=== PATIENT | male | born 1985 | race Caucasian/White ===

== ENCOUNTER 2021-02-15 00:30 | Inpatient (IN) | payer SELFPAY ==
[2021-02-15 00:15] VITALS: BP 142/91; PULSE 103; RESP 14; TEMP 37.2; O2SAT 100
[2021-02-15 00:47] VITALS: BMI 21.6
[2021-02-15 05:20] VITALS: BP 94/59; PULSE 85; RESP 16; TEMP 36.8; O2SAT 97
--- NOTE | 2021-02-15 06:39 | PC.NURSE ---
PATIENT WAS SOMNOLENT AND NONVERBAL UPON ADMISSION WOULD OCCASIONALLY RESPOND WITH A HEAD NOD.
--- NOTE | 2021-02-15 08:53 | PC.OT ---
OT EVALUATION ATTEMPTED; PATIENT DOES NOT AWAKEN; WILL ATTEMPT AGAIN AT A LATER TIME.
--- NOTE | 2021-02-15 11:20 | PM.NHP ---
Providers/Chief Complaint Admitting Physician: Tyrone Lundberg MD Chief Complaint: psychosis HPI NPU History of Present Illness Augusto Batres is a 35 year old male who presented to the outside hospital reports that he was found on 02/09/[address] from [facility] because he believed his father was going to kill him psychiatric consult was obtained. There is an affidavit as a reference reported patient had suffered from depression since high school due to bullying he has social anxiety. Not able to hold a job and has recently lost to family members decoded they endorse worsening anxiety depression where he is fearful of everything and in early November he started believing his father did not like him and would hurt him. Even when the father around patient will be reporting that he can see that his father was mad at him. He was texting his brother telling him that he needed to save his life. His paranoia and delusions have been worsening. He was disorganized at that time upon interview and continues to report being scared of his dad. He was placed on a 90-hour hold and transferred to [facility] for definitive treatment of those issues. Here he has been in next acute essentially doing only head nods occasionally low amplitude vocalizations can be heard but they are usually 1 or 2 words. He is getting up and going to meals at times but he is otherwise quite isolative and unwilling to give any significant history. We were unable to extract any other history. Discussed the risk benefits and alternatives of starting Abilify and he seemed ambivalent about whether he wanted or considered taking it. Drawing from the outside hospital chart they denied previous hospitalizations or outpatient treatment and denied using past psychiatric medications or suicide attempts he denied to them that he had autism later stating that he grew out of it. 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 Drug use of any kind of denied any denied any significant medical history. They denied any positive labs however the actual laboratory studies were not sent in his back. Meds NPU Home Medications Medication Instructions Recorded Confirmed Last Taken Type No Known Home Medications 02/15/21 02/15/21 Unknown History Allergies Allergy/AdvReac Type Severity Reaction Status Date / Time No Known Allergies Allergy Verified 02/16/21 05:27 Mental Status Exam MSE Comments: This is a slender male in hospital scrubs with limited grooming and eye contact with significant redness of the skin likely secondary to sunburn. No abnormal movements except for psychomotor retardation. Uncooperative with exam in no acute distress. Speech was limited and decreased rate and volume. Mood not described affect subdued. Thought process appeared linear. Thought content: Patient denied with head nods suicidal or homicidal ideation, there are no delusions reported and he did seem paranoid, there were no auditory visual hallucinations endorsed he did not appear to be attending to internal stimuli but he is also eyes closed and not interacting. Attention and concentration were limited and memory was unreliable but none were formally tested. He is alert and oriented x3. Insight and judgment are impaired and impulse control is impaired. Vitals/I&O/Wt Last Vital Signs Temp 98.9 F 02/15/21 00:15 Pulse 103 H 02/15/21 00:15 Resp 14 02/15/21 00:15 BP 142/91 02/15/21 00:15 Pulse Ox 100 02/15/21 00:15 A&P Assessment and plan (1) Psychosis: Status: Acute Additional A&P Information This is a 35-year-old white male who presented to the outside hospital with no reported history of mental health but likely a childhood diagnosis of autism who presents with worsening psychosis over the past couple months but thought his father is going to kill him not currently on medication. 1. Continue current medication. We will offer Abilify for his psychosis and hope that he will take it but if he continues in his condition he may need a 21-day hold. 2. Continue every 15 minute checks for safety. 3. Encourage individual, group and milieu therapies. 4. Encourage sober living treatment after discharge at the highest level of care to which he is willing to commit. Attestations NPU Medical Necessity Statement*: Inpatient hospitalization is medically necessary and the clinically appropriate intervention at this time. We will monitor medications and make changes as indicated. Patient will be in the hospital for over two midnights. Likely length of stay 4-6 days. Coding Level of Care Code Acute Physically Impaired Teacher for Greta Garcia Diagnoses Psychosis F29
[2021-02-15 13:55] VITALS: BP 128/82; PULSE 112; RESP 16; TEMP 36.6; O2SAT 98
[2021-02-15 21:14] VITALS: BP 128/82; PULSE 89; RESP 16; TEMP 36.6; O2SAT 98
[2021-02-15 22:00] VITALS: BP 131/87; PULSE 79; RESP 18; TEMP 36.7; O2SAT 98
[2021-02-16 06:00] VITALS: BP 124/78; PULSE 79; RESP 17; TEMP 36.8; O2SAT 99
--- NOTE | 2021-02-16 11:33 | PM.NPN ---
Subjective NPU Subjective: Interval history: Patient presents today primarily unchanged. Continues to be isolative not using significant vocalization to 3 words mostly mumbled under his breath. He did endorse that he did not take the Abilify once again discussed the risk-benefit alternatives to him taking it and he appeared to understand and agreed proceed as documented his note he had reviewed the medication today I identified we would continue to offer it. We continue to discuss our belief that he was suffering from psychosis and that the primary solution to that psychosis would be a medication like Abilify. Mental Status Exam MSE Comments: This is a slender male in hospital scrubs with limited grooming and eye contact with significant redness of the skin likely secondary to sunburn. No abnormal movements except for psychomotor retardation. Uncooperative with exam in no acute distress. Speech was limited and decreased rate and volume. Mood not described affect subdued. Thought process appeared linear. Thought content: Patient denied with head nods suicidal or homicidal ideation, there are no delusions reported and he did seem paranoid, there were no auditory visual hallucinations endorsed he did not appear to be attending to internal stimuli but he is also eyes closed and not interacting. Attention and concentration were limited and memory was unreliable but none were formally tested. He is alert and oriented x3. Insight and judgment are impaired and impulse control is impaired. Vitals/I&O/Wt Last Vital Signs Temp 98.2 F 02/16/21 06:00 Pulse 79 02/16/21 06:00 Resp 17 02/16/21 06:00 BP 124/78 02/16/21 06:00 Pulse Ox 99 02/16/21 06:00 A&P Additional A&P Information (1) Psychosis: This is a 35-year-old white male who presented to the outside hospital with no reported history of mental health but likely a childhood diagnosis of autism who presents with worsening psychosis over the past couple months but thought his father is going to kill him not currently on medication. 1. Continue current medication. We will continue to offer Abilify 10 mg p.o. daily. 2. Continue every 15 minute checks for safety. 3. Encourage individual, group and milieu therapies. 4. Encourage sober living treatment after discharge at the highest level of care to which he is willing to commit. Involuntary Hold Information 96 Hour Hold: 96 Hour Involuntary Admission: Yes 96 Hour Hold Ending Date: 02/21/21 96 Hour Hold Ending Time: 00:15 Attestations NPU Medical Necessity Statement*: Inpatient hospitalization is medically necessary and the clinically appropriate intervention at this time. We will monitor medications and make changes as indicated. Likely length of stay 4-6 days. Coding Level of Care Code Acute Health Safety Coordinator for Greta Garcia
[2021-02-16 14:00] VITALS: BP 124/78; PULSE 79; RESP 17; TEMP 36.8; O2SAT 99
--- NOTE | 2021-02-16 21:56 | PC.NURSE ---
Patient lying in bed with eyes closed when this television news reporter entered. When asked why the patient was here, patient stated he had to get away from his dad. States he just sensed that his dad was going to hurt him. states his dad has not hurt him in the past, but knew it was going to happen. Patient states he started in [place] and was going to [place]. Patient denies hearing voices, but does state he see geometric shapes, that seem to come and go. denies currently seeing them. will continue to monitor.
[2021-02-16 22:00] VITALS: BP 124/75; PULSE 73; RESP 17; TEMP 36.6; O2SAT 98
[2021-02-17 06:00] VITALS: BP 123/75; PULSE 82; RESP 16; TEMP 36.6; O2SAT 99
[2021-02-17] MEDS: ARIPiprazole 10 mg Tablet PO (07:47)
--- NOTE | 2021-02-17 08:45 | PM.NPN ---
Subjective NPU Subjective: Interval history: Patient presents today with slightly increased verbiage and ability to communicate but still with limited transfer of information. Continues to be quite isolative but does come out of his room and asked for something to drink. Quite gaunt appearance and seeming somewhat sickly per staff reports. He did finally take the Abilify this morning. He denies any issues with the medication. Endorsed that he had thoughts that his father was going to harm him prior to admission and that he was not necessarily having those thoughts now. Mental Status Exam MSE Comments: This is a slender underweight male in hospital scrubs with limited grooming and eye contact with significant redness of the skin likely secondary to sunburn. No abnormal movements except for psychomotor retardation. Uncooperative with exam in no acute distress. Speech was limited and decreased rate and volume. Mood described as okay, affect subdued. Thought process appeared linear. Thought content: Patient denied with head nods suicidal or homicidal ideation, there are no delusions reported and he did seem paranoid, there were no auditory visual hallucinations endorsed he did not appear to be attending to internal stimuli. Attention and concentration were limited and memory was unreliable but none were formally tested. He is alert and oriented x3. Insight and judgment are impaired and impulse control is impaired. Vitals/I&O/Wt Last Vital Signs Temp 97.9 F 02/17/21 06:00 Pulse 82 02/17/21 06:00 Resp 16 02/17/21 06:00 BP 123/75 02/17/21 06:00 Pulse Ox 99 02/17/21 06:00 A&P Additional A&P Information (1) Psychosis: This is a 35-year-old white male who presented to the outside hospital with no reported history of mental health but likely a childhood diagnosis of autism who presents with worsening psychosis over the past couple months but thought his father is going to kill him not currently on medication. 1. Continue current medication. Abilify 10 mg p.o. every morning initiated. 2. Continue every 15 minute checks for safety. 3. Encourage individual, group and milieu therapies. 4. Encourage sober living treatment after discharge at the highest level of care to which he is willing to commit. Involuntary Hold Information 96 Hour Hold: 96 Hour Involuntary Admission: Yes 96 Hour Hold Ending Date: 02/21/21 96 Hour Hold Ending Time: 00:15 Attestations NPU Medical Necessity Statement*: Inpatient hospitalization is medically necessary and the clinically appropriate intervention at this time. We will monitor medications and make changes as indicated. Likely length of stay 3-5 days. He is on a 96-hour hold. Coding Level of Care Code Acute Hairspring Fabrication Supervisor for Greta Garcia
[2021-02-17 14:00] VITALS: BP 112/72; PULSE 80; RESP 16; TEMP 36.9; O2SAT 98
[2021-02-17 22:00] VITALS: BP 115/71; PULSE 97; RESP 16; TEMP 36.7; O2SAT 98
[2021-02-18 05:24] VITALS: BMI 21.6
[2021-02-18 06:00] VITALS: BP 115/72; PULSE 109; RESP 17; TEMP 36.9; O2SAT 98
[2021-02-18] MEDS: ARIPiprazole 10 mg Tablet PO (08:58)
--- NOTE | 2021-02-18 11:12 | P.PN_ITS ---
Subjective NPU Subjective: Interval history: Patient presents today continuing to be isolative and into his room. He continues to have limited intake but is eating. He continues to have limited vocalizations in his responses but is now more apt to give a limited verbal response. He can give no explanation of the circumstances regarding his position or even the issues surrounding his thought that his father is trying to kill him. He has been compliant with the medication. Mental Status Exam MSE Comments: This is a slender underweight male in hospital scrubs with limited grooming and eye contact with significant redness of the skin likely secondary to sunburn. No abnormal movements except for psychomotor retardation. Uncooperative with exam in no acute distress. Speech was limited and decreased rate and volume. Mood described as okay, affect subdued. Thought process appeared more organized. Thought content: Patient denied suicidal or homicidal ideation, there are no delusions reported and he did seem paranoid, there were no auditory visual hallucinations endorsed he did not appear to be attending to internal stimuli. Attention and concentration were limited and memory was u nreliable but none were formally tested. He is alert and oriented x3. Insight and judgment are impaired and impulse control is impaired. Vitals/I&O/Wt Last Vital Signs Temp 98.1 F 02/17/21 22:00 Pulse 97 02/17/21 22:00 Resp 16 02/17/21 22:00 BP 115/71 02/17/21 22:00 Pulse Ox 98 02/17/21 22:00 Weight last 48 hrs Weight 70.307 kg A&P Additional A&P Information (1) Psychosis: This is a 35-year-old white male who presented to the outside hospital with no reported history of mental health but likely a childhood diagnosis of autism who presents with worsening psychosis over the past couple months but thought his father is going to kill him not currently on medication. 1. Continue current medication. 2. Continue every 15 minute checks for safety. 3. Encourage individual, group and milieu therapies. 4. Encourage sober living treatment after discharge at the highest level of care to which he is willing to commit. Involuntary Hold Information 96 Hour Hold: 96 Hour Involuntary Admission: Yes 96 Hour Hold Ending Date: 02/21/21 96 Hour Hold Ending Time: 00:15 Attestations NPU Medical Necessity Statement*: Inpatient hospitalization is medically necessary and the clinically appropriate intervention at this time. We will monitor medications and make changes as indicated. Likely length of stay 2-4 days. He is on a 96-hour hold. Coding Level of Care Code Acute Qa Developer for Greta Garcia
[2021-02-18 14:00] VITALS: BP 115/73; PULSE 100; RESP 15; TEMP 36.8; O2SAT 98
[2021-02-18 21:13] VITALS: BP 118/80; PULSE 75; RESP 17; TEMP 37.2; O2SAT 99
[2021-02-19 06:00] VITALS: BP 113/75; PULSE 99; RESP 17; TEMP 36.6; O2SAT 97
[2021-02-19] MEDS: ARIPiprazole 10 mg Tablet PO (08:15)
--- NOTE | 2021-02-19 12:41 | PM.NPN ---
Subjective NPU Subjective: Interval history: Patient presents today continuing to be fairly limited historian and mostly seeming and capable of giving informed conversation about past circumstances and future plans. He continues to seem feeble and spends the majority of his time lying in bed somewhat shaky. We discussed the 21-day hold but will be likely given his continued significant symptomatic state. He seemed fairly ambivalent about the conversation. Mental Status Exam MSE Comments: This is a slender underweight male in hospital scrubs with limited grooming and eye contact with significant redness of the skin likely secondary to sunburn. No abnormal movements except for psychomotor retardation and some tremulousness. Somewhat more engaged with exam in no acute distress. Speech was limited and decreased rate and volume. Mood described as okay, affect subdued. Thought process appeared more organized, but still not completely organized. Thought content: Patient denied suicidal or homicidal ideation, there are no delusions reported and he did seem paranoid, there were no auditory visual hallucinations endorsed he did not appear to be attending to internal stimuli. Attention and concentration were limited and memory was unreliable but none were formally tested. He is alert and oriented x3. Insight and judgment are impaired and impulse control is impaired. Vitals/I&O/Wt Last Vital Signs Temp 97.8 F 02/19/21 06:00 Pulse 99 02/19/21 06:00 Resp 17 02/19/21 06:00 BP 113/75 02/19/21 06:00 Pulse Ox 97 02/19/21 06:00 Weight last 48 hrs Weight 70.307 kg A&P Additional A&P Information (1) Psychosis: This is a 35-year-old white male who presented to the outside hospital with no reported history of mental health but likely a childhood diagnosis of autism who presents with worsening psychosis over the past couple months but thought his father is going to kill him not currently on medication. 1. Continue current medication. 2. Continue every 15 minute checks for safety. 3. Encourage individual, group and milieu therapies. 4. Encourage sober living treatment after discharge at the highest level of care to which he is willing to commit. 5. Attempting to get collateral information from family but son reports a family attempting to get guardianship. Involuntary Hold Information 96 Hour Hold: 96 Hour Involuntary Admission: Yes 96 Hour Hold Ending Date: 02/21/21 96 Hour Hold Ending Time: 00:15 Attestations NPU Medical Necessity Statement*: Inpatient hospitalization is medically necessary and the clinically appropriate intervention at this time. We will monitor medications and make changes as indicated. Likely length of stay 3-5 days. Likely will need a 21-day hold. Coding Level of Care Code Acute Deli Cutter Slicer for Greta Garcia
[2021-02-19 14:00] VITALS: BP 113/67; PULSE 101; RESP 17; TEMP 36.9; O2SAT 97
[2021-02-19 20:48] VITALS: BP 111/72; PULSE 98; RESP 17; TEMP 36.4; O2SAT 98
[2021-02-20 05:59] VITALS: BP 121/75; PULSE 72; RESP 15; TEMP 37.1; O2SAT 99
[2021-02-20] MEDS: ARIPiprazole 10 mg Tablet PO (08:21)
--- NOTE | 2021-02-20 12:34 | NPU.GN ---
[facility] Group Topic:Coping Skills General Mood of Group:Refused group.
[2021-02-20 14:00] VITALS: BP 111/70; PULSE 95; RESP 20; TEMP 36.1; O2SAT 97
--- NOTE | 2021-02-20 19:58 | PM.NPN ---
Subjective NPU Subjective: Interval history: Patient presents today continuing to have limited insight into the condition that led to him being on his 96-hour hold. We discussed the 21-day hold was filed. In our field for need for continued inpatient services for some time but explained that it would not have to be 21 days. We discussed the risks, benefits and alternatives of increasing his Abilify to 50 mg p.o. every morning and he understood and agreed to proceed as documented in this note. Mental Status Exam MSE Comments: This is a slender underweight male in hospital scrubs with limited grooming and eye contact with significant redness of the skin likely secondary to sunburn. No abnormal movements except for psychomotor retardation and some tremulousness. Somewhat more engaged with exam in no acute distress. Speech was limited and decreased rate and volume. Mood described as okay, affect subdued. Thought process appeared more organized, but still not completely organized. Thought content: Patient denied suicidal or homicidal ideation, there are no delusions reported and he did seem paranoid, there were no auditory visual hallucinations endorsed he did not appear to be attending to internal stimuli. Attention and concentration were limited and memory was unreliable but none were formally tested. He is alert and oriented x3. Insight and judgment are impaired and impulse control is impaired. Vitals/I&O/Wt Last Vital Signs Temp 97.8 F 02/20/21 20:08 Pulse 67 02/20/21 20:08 Resp 17 02/20/21 20:08 BP 130/85 02/20/21 20:08 Pulse Ox 97 02/20/21 20:08 A&P Additional A&P Information (1) Psychosis: This is a 35-year-old white male who presented to the outside hospital with no reported history of mental health but likely a childhood diagnosis of autism who presents with worsening psychosis over the past couple months but thought his father is going to kill him not currently on medication. 1. Continue current medication. We will increase Abilify to 15 mg p.o. every morning. 2. Continue every 15 minute checks for safety. 3. Encourage individual, group and milieu therapies. 4. Encourage sober living treatment after discharge at the highest level of care to which he is willing to commit. 5. Attempting to get collateral information from family but son reports a family attempting to get guardianship. 6. 21-day hold paperwork filed. Involuntary Hold Information 96 Hour Hold: 96 Hour Involuntary Admission: Yes 96 Hour Hold Ending Date: 02/21/21 96 Hour Hold Ending Time: 00:15 Attestations NPU Medical Necessity Statement*: Inpatient hospitalization is medically necessary and the clinically appropriate intervention at this time. We will monitor medications and make changes as indicated. Likely length of stay 8-10 days. Coding Level of Care Code Acute Car Sales Representative for Greta Garcia
[2021-02-20 20:08] VITALS: BP 130/85; PULSE 67; RESP 17; TEMP 36.6; O2SAT 97
[2021-02-21 06:00] VITALS: BP 118/78; PULSE 65; RESP 15; TEMP 36.7; O2SAT 98
[2021-02-21] MEDS: ARIPiprazole 10 mg Tablet 15 MG PO (07:58)
[2021-02-21 14:00] VITALS: BP 111/67; PULSE 102; RESP 18; TEMP 36.8; O2SAT 98
--- NOTE | 2021-02-21 17:36 | PM.NPN ---
Subjective NPU Subjective: Interval history: Patient presents today continuing to have limited goal-directed behavior outside of sometimes coming to get something to eat or drink. He is not engaging with other patients or group in general. We discussed that his family was concerned enough that they were talking about guardianship which created no response in him. We talked about the risk benefits alternatives of increasing his Abilify and he understood and agreed to proceed as documented in this note. He had his first increased dose this morning. Mental Status Exam MSE Comments: This is a slender underweight male in hospital scrubs with limited grooming and eye contact with resolving redness of the skin secondary to sunburn. No abnormal movements except for psychomotor retardation and some tremulousness. Somewhat more engaged with exam in no acute distress. Speech was limited and decreased rate and volume. Mood described as okay, affect subdued. Thought process appeared more organized, but still not completely organized. Thought content: Patient denied suicidal or homicidal ideation, there are no delusions reported and he did seem paranoid, there were no auditory visual hallucinations endorsed he did not appear to be attending to internal stimuli. Attention and concentration were limited and memory was unreliable but none were formally tested. He is alert and oriented x3. Insight and judgment are impaired and impulse control is impaired. Vitals/I&O/Wt Last Vital Signs Temp 98.2 F 02/21/21 22:00 Pulse 96 02/21/21 22:00 Resp 17 02/21/21 22:00 BP 106/62 02/21/21 22:00 Pulse Ox 98 02/21/21 22:00 A&P Additional A&P Information (1) Psychosis: This is a 35-year-old white male who presented to the outside hospital with no reported history of mental health but likely a childhood diagnosis of autism who presents with worsening psychosis over the past couple months but thought his father is going to kill him not currently on medication. 1. Continue current medication. 2. Continue every 15 minute checks for safety. 3. Encourage individual, group and milieu therapies. 4. Encourage sober living treatment after discharge at the highest level of care to which he is willing to commit. 5. Attempting to get collateral information from family but son reports a family attempting to get guardianship. 6. 21-day hold hearing tomorrow. Involuntary Hold Information 96 Hour Hold: 96 Hour Involuntary Admission: Yes 96 Hour Hold Ending Date: 02/21/21 96 Hour Hold Ending Time: 00:15 Attestations NPU Medical Necessity Statement*: Inpatient hospitalization is medically necessary and the clinically appropriate intervention at this time. We will monitor medications and make changes as indicated. Likely length of stay 8-10 days. Coding Level of Care Code Acute Assembler Erector for Greta Garcia
[2021-02-21 22:00] VITALS: BP 106/62; PULSE 96; RESP 17; TEMP 36.8; O2SAT 98
[2021-02-22 06:00] VITALS: BP 120/77; PULSE 83; RESP 18; TEMP 36.5; O2SAT 99
[2021-02-22] MEDS: ARIPiprazole 10 mg Tablet 15 MG PO (08:21)
[2021-02-22 14:00] VITALS: BP 108/66; PULSE 108; RESP 16; TEMP 36.6; O2SAT 95
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
[2021-02-22 20:15] VITALS: BP 119/55; PULSE 100; RESP 17; TEMP 36.7; O2SAT 98
[2021-02-23 06:00] VITALS: BP 119/55; PULSE 100; RESP 17; TEMP 36.7; O2SAT 98
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
[2021-02-23] MEDS: ARIPiprazole 10 mg Tablet 15 MG PO (08:10)
[2021-02-23 14:00] VITALS: BP 105/62; PULSE 99; RESP 16; TEMP 36.8; O2SAT 97
[2021-02-23 20:54] VITALS: BP 112/69; PULSE 95; RESP 16; TEMP 36.5; O2SAT 97
[2021-02-23] MEDS: nicotine 2 mg Gum BUCCAL (20:54)
[2021-02-23] MEDS: trazodone 50 mg Tablet PO (20:55)
[2021-02-23] MEDS: hyDROXYzine 25 mg Capsule 50 MG PO (20:55)
--- NOTE | 2021-02-23 21:53 | PC.NURSE ---
Pt resting in bed with eyes closed during assessment. Awakens easily to verbal stimuli. Denies SI/HI, auditory or visual hallucinations at this time. Denies c/o pain. Flat affected noted. Requested Vistaril and trazadone this evening for anxiety and assistance with sleeping. Medication education performed.
[2021-02-24 06:00] VITALS: BP 112/69; PULSE 95; RESP 16; TEMP 36.5; O2SAT 97
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
[2021-02-24] MEDS: ARIPiprazole 10 mg Tablet 15 MG PO (08:39)
[2021-02-24 14:00] VITALS: BP 119/82; PULSE 96; RESP 18; TEMP 36.1; O2SAT 97
[2021-02-24 20:59] VITALS: BP 104/59; PULSE 90; RESP 17; TEMP 36.8; O2SAT 98
[2021-02-24] MEDS: trazodone 50 mg Tablet PO (21:56)
[2021-02-25 06:00] VITALS: BP 123/84; PULSE 96; RESP 18; TEMP 36.6; O2SAT 95
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
[2021-02-25] MEDS: ARIPiprazole 10 mg Tablet 15 MG PO (08:26)
[2021-02-25 14:00] VITALS: BP 106/67; PULSE 94; RESP 16; TEMP 36.9; O2SAT 97
[2021-02-25] MEDS: nicotine 2 mg Gum BUCCAL (17:13)
[2021-02-25 20:10] VITALS: BP 109/69; PULSE 86; RESP 18; TEMP 36.9; O2SAT 96
--- NOTE | 2021-02-25 21:55 | PC.NURSE ---
pt requested anxiety med, vistaril 50mg po given.
[2021-02-25] MEDS: hyDROXYzine 25 mg Capsule 50 MG PO (21:59)
--- NOTE | 2021-02-26 | PC.NURSE ---
pt resting quietly
[2021-02-26 06:00] VITALS: BP 107/77; PULSE 84; RESP 18; TEMP 37.1; O2SAT 97
[2021-02-26] MEDS: ARIPiprazole 10 mg Tablet 15 MG PO (09:06)
[2021-02-26 14:00] VITALS: BP 108/56; PULSE 106; RESP 20; TEMP 37.1; O2SAT 96
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
[2021-02-26] MEDS: hyDROXYzine 25 mg Capsule 50 MG PO (21:40)
[2021-02-26] MEDS: trazodone 50 mg Tablet PO (21:40)
[2021-02-26 22:00] VITALS: BP 114/72; PULSE 92; RESP 14; TEMP 36.6; O2SAT 97
[2021-02-27 06:00] VITALS: BP 121/76; PULSE 65; RESP 17; TEMP 37.2; O2SAT 98
[2021-02-27] MEDS: ARIPiprazole 10 mg Tablet 15 MG PO (08:26)
[2021-02-27 14:00] VITALS: BP 111/69; PULSE 98; RESP 20; TEMP 36.7; O2SAT 97
--- NOTE | 2021-02-27 14:11 | P.PN_ITS ---
Subjective NPU Subjective: Interval history: The patient says that he slept well last night, without nightmares. He says that the medicine relaxes him he also says that his fear of his father wore off. He talked about hoping his mother is okay, and does not know if she is eating or able to get around. He denies auditory visual hallucinations. He denies suicidal and homicidal ideation. He denies medication side effects. He is okay for us to talk with his parents. Mental Status Exam MSE Comments: This is a slender underweight male in hospital scrubs with improving grooming and eye contact. He stared down and looked up to make eye contact more often. No abnormal movements or tics noted. He he continues to have some psychomotor retardation and some tremulousness. He is a little more engaged with the exam today, in no acute distress. Speech was more productive at a more normal rate and volume. Mood described as okay, affect subdued. Thought process appeared more organized, but still not completely organized. Thought content: Patient denied suicidal or homicidal ideation. There are no delusions reported but he did seem paranoid. There were no auditory visual hallucinations endorsed. He did not appear to be attending to internal stimuli. Attention and concentration were limited and memory was unreliable but none were formally tested. He is alert and oriented x3. Insight and judgment are impaired and impulse control is impaired. Vitals/I&O/Wt Last Vital Signs Temp 98.0 F 02/27/21 14:00 Pulse 98 02/27/21 14:00 Resp 20 H 02/27/21 14:00 BP 111/69 02/27/21 14:00 Pulse Ox 97 02/27/21 14:00 A&P Assessment and plan (1) Psychosis: Status: Acute (2) Autism: Status: Chronic Additional A&P Information This is a 35-year-old white male who presented to the outside hospital with no reported history of mental health but likely a childhood diagnosis of autism who presents with worsening psychosis over the past couple months but thought his father is going to kill him not currently on medication. 1. Continue current medication. 2. Continue every 15 minute checks for safety. 3. Encourage individual, group and milieu therapies. 4. Encourage sober living treatment after discharge at the highest level of care to which he is willing to commit. 5. Attempting to get collateral information from family but son reports a family attempting to get guardianship. 6. 21-day hold granted. Involuntary Hold Information 96 Hour Hold: 96 Hour Involuntary Admission: Yes 96 Hour Hold Ending Date: 02/21/21 96 Hour Hold Ending Time: 00:15 Attestations NPU Medical Necessity Statement*: Inpatient hospitalization is medically necessary and the clinically appropriate intervention at this time. We will monitor medications and make changes as indicated. Likely length of stay 5-7 days. Coding Level of Care Code Acute Analytical Research Program Manager for Greta Garcia Diagnoses Psychosis F29 Autism F84.0
[2021-02-27 22:00] VITALS: BP 112/69; PULSE 89; RESP 18; TEMP 36.9; O2SAT 97
[2021-02-28 06:00] VITALS: BP 112/70; PULSE 87; RESP 18; TEMP 36.8; O2SAT 96
[2021-02-28] MEDS: ARIPiprazole 10 mg Tablet 15 MG PO (08:29)
[2021-02-28 14:00] VITALS: BP 106/63; PULSE 92; RESP 17; TEMP 36.7; O2SAT 97
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
[2021-02-28 21:55] VITALS: BP 124/85; PULSE 100; RESP 16; O2SAT 96
[2021-03-01 06:00] VITALS: BP 109/75; PULSE 92; RESP 18; O2SAT 95
[2021-03-01] MEDS: ARIPiprazole 10 mg Tablet 20 MG PO (09:30)
[2021-03-01 14:00] VITALS: BP 113/68; PULSE 95; RESP 18; TEMP 36.1; O2SAT 97
--- NOTE | 2021-03-01 14:27 | PM.NPN ---
Subjective NPU Subjective: Interval history: I met with the treatment team to discuss the patient's progress. They report that he has been withdrawn but cooperative. The patient says he is feeling better, and he is no longer afraid to return home. He does not fear that his father will hurt him now. In fact, he says that he will feel much better at home than on the unit. When he says this, he smiles for the first time that I have seen during this hospitalization. He no longer has delusional ideas about his family. His mood continues to be neutral. He also continues to say that his medication has been helpful and produces no side effects. We did increase the dose yesterday, and he has tolerated this well. Mental Status Exam MSE Comments: This is a slender underweight male in hospital scrubs who still makes poor eye contact and has psychomotor retardation. He continues to stare stared down at the floor when speaking. No abnormal movements or tics noted. Speech was fairly fluent at a more normal rate and volume. Mood described as normal, affect subdued, but more engaged. Thought process appeared more organized. Thought content: Patient denied suicidal or homicidal ideation. He is no longer worried about the delusions he has experienced. Denies auditory and visual hallucinations. He did not appear to be attending to internal stimuli. Attention and concentration were limited and memory was unreliable but none were formally tested. He is alert and oriented x3. Insight and judgment are improving and impulse control is improving. Vitals/I&O/Wt Last Vital Signs Temp 96.9 F L 03/01/21 14:00 Pulse 95 03/01/21 14:00 Resp 18 03/01/21 14:00 BP 113/68 03/01/21 14:00 Pulse Ox 97 03/01/21 14:00 A&P Assessment and plan (1) Autism: Status: Chronic (2) Psychosis: Status: Acute Additional A&P Information This is a 35-year-old white male who presented to the outside hospital with no reported history of mental health but likely a childhood diagnosis of autism who presents with worsening and untreated psychosis over the past couple months. He thought his father was going to kill him, and began walking from [place], [place] to [place], ending up with severe sunburn and dehydration. 1. Continue current medication. We increased the dose of Abilify to 20 mg yesterday, and he has tolerated this dose. 2. Continue every 15 minute checks for safety. 3. Encourage individual, group and milieu therapies. 4. Encourage sober living treatment after discharge at the highest level of care to which he is willing to commit. 5. Attempting to get collateral information from family but son reports family attempting to get guardianship. 6. 21-day hold granted. Involuntary Hold Information 96 Hour Hold: 96 Hour Involuntary Admission: Yes 96 Hour Hold Ending Date: 02/21/21 96 Hour Hold Ending Time: 00:15 Attestations NPU Medical Necessity Statement*: Inpatient hospitalization is medically necessary and the clinically appropriate intervention at this time. We will monitor medications and make changes as indicated. The patient's delusions have resolved and we anticipate discharge tomorrow. Coding Level of Care Code Acute [employer] M[employer] Operator for Greta Garcia Diagnoses Autism F84.0 Psychosis F29
[2021-03-01 22:00] VITALS: BP 113/68; PULSE 95; RESP 18; TEMP 36.9; O2SAT 97
[2021-03-02 06:00] VITALS: BP 112/68; PULSE 95; RESP 16; TEMP 36.8; O2SAT 96
[2021-03-02] MEDS: ARIPiprazole 10 mg Tablet 20 MG PO (09:29)
--- NOTE | 2021-03-02 13:37 | PM.NDC ---
Diagnoses at Discharge Discharge Diagnosis (1) Autism: Status: Chronic (2) Psychosis: Status: Resolved Reason for Visit Reason for Visit: psychosis Brief History: Augusto Batres is a 35 year old male who presented to the outside hospital reports that he was found on 02/[address] from [facility] because he believed his father was going to kill him psychiatric consult was obtained. There is an affidavit as a reference reported patient had suffered from depression since high school due to bullying he has social anxiety. Not able to hold a job and has recently lost to family members decoded they endorse worsening anxiety depression where he is fearful of everything and in early November he started believing his father did not like him and would hurt him. Even when the father around patient will be reporting that he can see that his father was mad at him. He was texting his brother telling him that he needed to save his life. His paranoia and delusions have been worsening. He was disorganized at that time upon interview and continues to report being scared of his dad. He was placed on a 90-hour hold and transferred to [facility] for definitive treatment of those issues. Here he has been in next acute essentially doing only head nods occasionally low amplitude vocalizations can be heard but they are usually 1 or 2 words. He is getting up and going to meals at times but he is otherwise quite isolative and unwilling to give any significant history. We were unable to extract any other history. Discussed the risk benefits and alternatives of starting Abilify and he seemed ambivalent about whether he wanted or considered taking it. Drawing from the outside hospital chart they denied previous hospitalizations or outpatient treatment and denied using past psychiatric medications or suicide attempts he denied to them that he had autism later stating that he grew out of it. 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 Drug use of any kind of denied any denied any significant medical history. They denied any positive labs however the actual laboratory studies were not sent in his back. Hospital Course Hospital Course The patient was admitted to the neuropsychiatric unit for definitive treatment of these issues. He was quite isolative throughout his stay and initially spoke very little, for example saying 3 words mostly mumbled under his breath. At first he did not want to take the Abilify, but gradually agreed to do so. There were delusions present at admission which slowly resolved with the addition of Abilify, which was titrated up to 20 mg daily. He was somewhat receptive to treatment team recommendations and showed modest improvement and was able to contract for safety prior to discharge. He no longer felt that his father was going to kill him. He said that those ideas felt like they are in the past. During the hospitalization, patient had routine laboratory studies which were within normal limits except for few outliers. Additionally there was a general medical evaluation which was also within normal limits and revealed no new acute processes. My note from the day prior to discharge states: I met with the treatment team to discuss the patient's progress. They report that he has been withdrawn but cooperative. The patient says he is feeling better, and he is no longer afraid to return home. He does not fear that his father will hurt him now. In fact, he says that he will feel much better at home than on the unit. When he says this, he smiles for the first time that I have seen during this hospitalization. He no longer has delusional ideas about his family. His mood continues to be neutral. He also continues to say that his medication has been helpful and produces no side effects. We did increase the dose of Abilify to 20 mg yesterday, and he has tolerated this well. Discharge Summary: On the day of discharge, I spoke with the patient's mother and father for 1/2-hour. I explained I were thinking about his diagnosis, treatment, and prognosis. I explained that, while the hospitalization has helped him to get through the acute crisis, he will need follow-up to continue to adjust his medication and provide treatment to help him regain as much function as possible. They understood and appreciated the discussion. At the time of discharge, the patient was still painfully shy but said his mood was good and he denied feeling depressed or worried. We discussed what he could do if the thoughts that his father was going to hurt him return. He said he could talk to his mother about it and she could help him. He said he slept okay last night. He said he is eating okay. Psychosis and lethality were denied. Patient endorsed a plan to take his medication as prescribed, avoid all drugs of abuse, and follow-up with the aftercare recommendations of the treatment team. Patient was evaluated and deemed to be absent credible lethality, and had achieved the maximum benefit from an inpatient hospitalization, so was discharged. Addendum: After the patient was discharged, the patient's mother called and spoke with the nurse. She said that the patient had flushed his Abilify down the toilet because it was making him dizzy, irritated, and having difficulty sleeping. He was asked directly each day about medication side effects, and did not report these side effects when he was here. Because he had no more Abilify and because he did not like the 20 mg daily dose, we called in Abilify 15 mg p.o. daily to his local pharmacy - a 30-day supply with no refills. Involuntary Hold Information 96 Hour Hold: 96 Hour Involuntary Admission: Yes 96 Hour Hold Ending Date: 02/21/21 96 Hour Hold Ending Time: 00:15 Mental Status Exam MSE Comments: This is a slender underweight male in hospital scrubs who still makes poor eye contact and has some psychomotor retardation. He continues to stare stared down at the floor when speaking. No abnormal movements or tics noted. Speech was fairly fluent at a more normal rate and volume. Mood described as good, affect subdued, but somewhat engaged. Thought process appeared more organized. Thought content: Patient denied suicidal or homicidal ideation. He is no longer worried about the delusions he has experienced. Denies auditory and visual hallucinations. He did not appear to be attending to internal stimuli. Attention and concentration were limited and memory was unreliable but none were formally tested. He is alert and oriented x3. Insight and judgment are improved and adequate for living with his parents. Impulse control is also adequate for his discharge situation. Discharge Data Vitals: Last Vital Signs Temp 98.2 F 03/02/21 06:00 Pulse 95 03/02/21 06:00 Resp 16 03/02/21 06:00 BP 112/68 03/02/21 06:00 Pulse Ox 96 03/02/21 06:00 Discharge Plan Discharge Patient Disposition: Home Condition: Stable Prescriptions: No Action Abilify 15 mg Tablet 15 mg PO DAILY RF: 0 Discharge Orders: Discharge Order (Routine); Ordered 10/01/21 Ordered By: Brendon Hensley Referrals: [facility] [Other] Discharge Diet: Usual diet Discharge Activity: Resume usual activity Patient Instructions: Opioid Safety Discharge Attestations NPU Time Spent in Discharge Care*: less than 30 min Specific Discharge Activities: Specific discharge activities: educating patient, discussing with director of casework/social workers/dc planners, documenting/other paperwork and evaluating patient/reviewing data Status at Discharge: Cognitive status at discharge: cognitively intact, Behavioral status at discharge: cooperative, Functional status at discharge: independent ambulation Overall status at discharge: patient is back to baseline Coding Level of Care Code Acute Chg FW DC note Diagnoses Autism F84.0 Psychosis F29
[2021-03-02 14:00] VITALS: BP 105/62; PULSE 85; RESP 18; TEMP 36.2; O2SAT 97
[2021-03-02 14:19] VITALS: BP 112/68; PULSE 95; RESP 16; TEMP 36.8; O2SAT 96
--- NOTE | 2021-03-03 15:29 | PC.NURSE ---
Patient's mother called unit and stated that Augusto is having issues with the medications. States it is making him dizy, irritated and is having difficulty sleeping. Because of this, the patient flushed some of his meds down the toilet. Spoke with Dr. Hensley about this - he asked this dependency counselor to call in abilify 15mg po daily - 30 days with no refills.
== END 2021-03-02 16:00 | disposition home or self-care (01) | DRG 885 ==
PROVIDERS: Admitting Provider Psychiatry & Neurology Psychiatry; Visit Provider Psychiatry & Neurology Child & Adolescent Psychiatry
DX: F29 Unspecified psychosis not due to a substance or known physiological condition (principal); F84.0 Autistic disorder; F32.9 Major depressive disorder, single episode, unspecified; F41.9 Anxiety disorder, unspecified
CPT/HCPCS: 97150; 97165